=== PATIENT | male | born 1970 ===

== ENCOUNTER 2024-02-06 14:53 | Emergency (ER) | payer OTHER ==
[2024-02-06 15:02] VITALS: BP 151/87; TEMP 98.3
[2024-02-06] MEDS ORDERED: FLEXERIL 1010 MG/TAB PO (16:48)
[2024-02-06 17:00] VITALS: PULSE 73
== END 2024-02-06 17:00 | disposition home or self-care (01) ==
LOC: COL.ER 14:53
DX: M54.50 Low back pain, unspecified (principal); X50.0XXA Overexertion from strenuous movement or load, initial encounter; Y92.214 College as the place of occurrence of the external cause; Y99.0 Civilian activity done for income or pay